=== PATIENT | male | born 1975 | race African-American/Black ===

== ENCOUNTER 2022-08-08 17:04 | Emergency (ER) | payer SELFPAY ==
[~2022-08-08] VITALS: Ht 175.3 cm; Wt 75.0 kg
[2022-08-08 17:58] VITALS: BP 121/78
== END 2022-08-08 17:37 | disposition left against medical advice (07) ==
LOC: ER 17:04
DX: Z53.21 Procedure and treatment not carried out due to patient leaving prior to being seen by health care provider (principal)

== ENCOUNTER 2022-08-10 19:23 | Emergency (ER) | payer SELFPAY ==
[2022-08-10] MEDS ORDERED: MUPI22OI2 TP (23:29)
[2022-08-10] MEDS ORDERED: GUAI600T26 MT (23:29)
== END 2022-08-10 20:44 | disposition left against medical advice (07) ==
LOC: ER 19:23
DX: Z53.21 Procedure and treatment not carried out due to patient leaving prior to being seen by health care provider (principal)

== ENCOUNTER 2022-08-10 22:04 | Emergency (ER) | payer SELFPAY ==
[~2022-08-10] VITALS: Ht 162.6 cm; Wt 57.0 kg
[2022-08-10 22:39] VITALS: BP 124/80
[2022-08-10] MEDS ORDERED: MUPI22OI2 TP (23:29)
[2022-08-10] MEDS ORDERED: GUAI600T26 MT (23:29)
[2022-08-10] MEDS ORDERED: TETANUS, DIPHTHERIA, PERTUSSIS VAC/PF 0.5ML (>10YR OLD) IM ONE (23:30)
== END 2022-08-10 23:53 | disposition home or self-care (01) ==
LOC: ER 22:04
DX: R21 Rash and other nonspecific skin eruption (principal); R09.81 Nasal congestion; Z23 Encounter for immunization; Z59.00 Homelessness unspecified; Z71.85 Encounter for immunization safety counseling
CPT/HCPCS: 90471; 90715; 99283